=== PATIENT | female | born 1940 ===

== ENCOUNTER 2017-10-05 12:02 | Emergency (ER) | payer SELFPAY ==
[2017-10-05 12:28] VITALS: BP 166/95; PULSE 100; RESP 16; TEMP 99; O2SAT 100
--- NOTE | 2017-10-05 12:34 | C.PDOC ---
History Of Present Illness 77-year-old female, presents to the emergency department with complaints of 2-3 day duration of painful rash to the left side of face and neck. Patient reports that it is associated with intermittent itching. Denies fever, travel, vision changes, numbness/weakness. Time Seen by Provider: 10/05/17 12:29 Chief Complaint (Nursing): Abnormal Skin Integrity History Per: Patient History/Exam Limitations: no limitations Onset/Duration Of Symptoms: Days Current Symptoms Are (Timing): Still Present Past Medical History Reviewed: Historical Data, Nursing Documentation, Vital Signs Vital Signs: Last Vital Signs Temp 99 F 10/05/17 12:25 Pulse 100 H 10/05/17 12:25 Resp 16 10/05/17 12:25 BP 166/95 H 10/05/17 12:25 Pulse Ox 100 10/05/17 13:11 Family History: States: No Known Family Hx - Social History Hx Alcohol Use: No Hx Substance Use: No - Immunization History Hx Tetanus Toxoid Vaccination: No Hx Influenza Vaccination: No Hx Pneumococcal Vaccination: No Review Of Systems Constitutional: Negative for: Fever, Chills Respiratory: Negative for: Shortness of Breath Gastrointestinal: Negative for: Nausea, Vomiting Skin: Positive for: Rash Neurological: Negative for: Weakness, Numbness Physical Exam - Physical Exam Appears: Non-toxic, No Acute Distress Skin: Rash (vesicular rash to the left lower cheek left neck and extends to the ear, in a dermatomal distribution) Head: Atraumatic, Normacephalic Eye(s): bilateral: Normal Inspection, PERRL, EOMI Ear(s): Bilateral: Normal Nose: Normal Oral Mucosa: Moist Lips: Normal Appearing Neck: Normal ROM, Supple Chest: Symmetrical Cardiovascular: Rhythm Regular, No Murmur Respiratory: Normal Breath Sounds, No Accessory Muscle Use Extremity: Normal ROM Neurological/Psych: Oriented x3, Normal Speech ED Course And Treatment ECG: Interpreted By Me, Viewed By Me O2 Sat by Pulse Oximetry: 100 (on RA) Pulse Ox Interpretation: Normal Medical Decision Making Medical Decision Making: Physical exam findings are indicative of shingles. Dr. Gonzalez has examined the patient and agrees with plan. There is no eye or ear involvement. Disposition - Disposition Referrals: [facility] [Outside] Disposition: HOME/ ROUTINE Disposition Time: 13:01 Condition: GOOD Additional Instructions: Follow up with the medical doctor within 1-2 days. Return if worsened. Prescriptions: Acyclovir [Zovirax] 800 mg PO 5XD #34 tab Ibuprofen [Motrin] 1 tab PO TID PRN #30 tab PRN Reason: Pain predniSONE [Prednisone] 20 mg PO BID #10 tab Instructions: Shingles (ED) Forms: [employer] (Persian) Print Language: LUXEMBOURGISH - Clinical Impression Clinical Impression: Herpes zoster - Scribe Statement The provider has reviewed the documentation as recorded by the Scribe (Phil [place]) All medical record entries made by the Scribe were at my direction and personally dictated by me. I have reviewed the chart and agree that the record accurately reflects my personal performance of the history, physical exam, medical decision making, and the department course for this patient. I have also personally directed, reviewed, and agree with the discharge instructions and disposition.
== END 2017-10-05 13:06 | disposition home or self-care (01) ==
LOC: C.ER 12:02
DX: B02.9 Zoster without complications (principal)

== ENCOUNTER 2017-10-11 10:50 | Emergency (ER) | payer MEDICARE ==
[2017-10-11 11:14] VITALS: BP 160/92; PULSE 111; TEMP 99; O2SAT 95
--- NOTE | 2017-10-11 12:10 | C.PDOC ---
History Of Present Illness 77 y/o female presents to the ER for evaluation of a rash on the left side of her face and neck. Patient reports that she was seen in the ER on Oct 05, 2017 and she was diagnosed with herpes. Patient reports the rash feels better since the previous visit but she is requesting a cream to help with the rash. Patient does not have any other complaints. Time Seen by Provider: 10/11/17 11:46 Chief Complaint (Nursing): Abnormal Skin Integrity History Per: Patient History/Exam Limitations: no limitations Onset/Duration Of Symptoms: Days Current Symptoms Are (Timing): Still Present Severity: Moderate Past Medical History Reviewed: Historical Data, Nursing Documentation, Vital Signs Vital Signs: Last Vital Signs Temp 99.0 F 10/11/17 11:13 Pulse 111 H 10/11/17 11:13 Resp 18 10/11/17 12:37 BP 160/92 H 10/11/17 11:13 Pulse Ox 95 10/11/17 12:50 - Medical History PMH: No Chronic Diseases Surgical History: No Surg Hx Family History: States: No Known Family Hx - Social History Hx Alcohol Use: No Hx Substance Use: No - Immunization History Hx Tetanus Toxoid Vaccination: No Hx Influenza Vaccination: No Hx Pneumococcal Vaccination: No Review Of Systems Except As Marked, All Systems Reviewed And Found Negative. Constitutional: Negative for: Fever, Chills Skin: Positive for: Rash (left side of face and neck ) Physical Exam - Physical Exam Appears: Well, Non-toxic, No Acute Distress Skin: Normal Color, Warm, Rash (scattered vesicular rash covered by dry scab over Left side face/neck, left sided anterior chest wall) Head: Atraumatic, Normacephalic Eye(s): bilateral: Normal Inspection, PERRL Nose: Normal Oral Mucosa: Moist Neck: Supple Chest: Symmetrical Extremity: Normal ROM Neurological/Psych: Oriented x3, Normal Speech, Normal Cognition, Normal Motor, Normal Sensation ED Course And Treatment O2 Sat by Pulse Oximetry: 95 (RA) Pulse Ox Interpretation: Normal Progress Note: On re-eval, pt is afebrile, hemodynamicaly stable. Non-toxic. Skin: left sided facial rash extend to lesft side neck and anterior chest wall, well healing, no cellulitis, no evidence of superimposed infection. neck: Supple, (-) midline tenderness. Lungs; CTA B/L, BS equal B/L. Neurologicaly intact. Pt advised to complete intiated treatment, opical tx provided. ref. to f/u with PMD in 2-3 days for re-eval. return to ED if any worsening or new changes. Mom and pt understand, agrees with dospisition. Disposition Counseled Patient/Family Regarding: Diagnosis, Need For Followup, Rx Given - Disposition Referrals: [facility] [Outside] Disposition: HOME/ ROUTINE Disposition Time: 12:08 Condition: STABLE Additional Instructions: COMPLETE TREATMENT INITIATED BEFORE APPLY CREAM DAILY TO RASH AREA FOLLOW UP WITH PMD IN 2-3 DAYS FOR RE-EVALUATION. RETURN TO ED IF ANY WORSENING OR NEW CHANGES. Prescriptions: Bacitracin OINT 1 applic TP BID #1 tube Instructions: Shingles (ED) Forms: [employer] (Frisian) Print Language: TAIWANESE - Clinical Impression Clinical Impression: Herpes zoster - PA / [employer] / Resident Statement MD/DO has reviewed & agrees with the documentation as recorded. - Scribe Statement The provider has reviewed the documentation as recorded by the Tyrelibjarod Magana Provider Attestation All medical record entries made by the Scribe were at my direction and personally dictated by me. I have reviewed the chart and agree that the record accurately reflects my personal performance of the history, physical exam, medical decision making, and the department course for this patient. I have also personally directed, reviewed, and agree with the discharge instructions and disposition.
[2017-10-11 12:37] VITALS: RESP 18
== END 2017-10-11 12:37 | disposition home or self-care (01) ==
LOC: C.ER 10:50
DX: B02.9 Zoster without complications (principal)